=== PATIENT | female | born 1990 | race Caucasian/White ===

== ENCOUNTER 2016-10-25 07:31 | Emergency (ER) | payer OTHER ==
[2016-10-25 07:38] VITALS: BP 140/76; PULSE 74; TEMP 98.2; BMI 33.3
--- NOTE | 2016-10-25 07:55 | PDOC ---
History of Present Illness - General Chief Complaint: Vaginal Bleeding Stated Complaint: BLEEDING Time Seen by Provider: 10/25/16 07:52 History Source: Patient Exam Limitations: No Limitations - History of Present Illness Initial Comments: CHIEF COMPLAINT: 25 y/o female, c/o vaginal bleeding since yesterday. HISTORY OF PRESENT ILLNESS: The patient states her LMP was 09/08/16. She denies , stating because she is breast feeding she didn't think she could get . She admits she is passing clots and has lower abdominal and back cramping that feels like menstrual cramps. She has not taken a test. She denies f/c, n/v/d, CP, SOB, hematuria, dysuria. She gave in 2015 and has had regular menstrual periods since June 2016. Vital signs on arrival are within normal limits. REVIEW OF SYSTEMS: GENERAL/CONSTITUTIONAL: No fever/chills. No weakness. No weight change. HEAD, EYES, EARS, NOSE AND THROAT: No change in vision. No ear pain or discharge. No sore throat. CARDIOVASCULAR: No chest pain or shortness of breath. RESPIRATORY: No cough, wheezing, or hemoptysis. GASTROINTESTINAL: +abdominal cramping. No nausea, vomiting, diarrhea. GENITOURINARY: +vaginal bleeding with passage of clots. No dysuria, frequency, or change in urination. MUSCULOSKELETAL: No joint or muscle swelling or pain. No neck or back pain. SKIN: No rash or easy bruising. NEUROLOGIC: No headache, vertigo, loss of consciousness, or loss of sensation. PHYSICAL EXAM: GENERAL: The patient is awake, alert, and fully oriented, in no acute distress. She is very well appearing, ambulatory, in NAD or obvious discomfort. HEAD: Normal with no signs of trauma. ENT: Pupils equal, round and reactive to light, extraocular movements intact, sclera anicteric, conjunctiva clear. Neck supple. LUNGS: Clear to auscultation bilaterally. Normal excursion. No respiratory distress or use of accessory muscles. CV: RRR, S1/S2, no MRG. Cap refill < 2 sec. ABDOMEN: Soft, non-distended, non-tender even to deep palpation, no hepatomegaly or splenomegaly, no masses. VAGINAL: Moderate red blood in vaginal vault. Os closed. Digital exam reveals b/l adnexal tenderness as well as CMT. EXTREMITIES: Normal range of motion, no edema. NEUROLOGICAL: Normal speech, normal gait. CN II-XII grossly intact. SKIN: Warm, dry, normal turgor, no rashes or lesions noted. Past History - Past Medical History Allergies/Adverse Reactions: Allergies Allergy/AdvReac Type Severity Reaction Status Date / Time No Known Allergies Allergy Verified 10/25/16 07:37 Home Medications: Ambulatory Orders NK [No Known Home Medication] 10/25/16 Asthma: No Cancer: No Cardiac Disorders: No Diabetes: No HTN: No Seizures: No Thyroid Disease: No - Psycho/Social/Smoking Cessation Hx Anxiety: No Suicidal Ideation: No Smoking History: Never smoked Hx Alcohol Use: No Drug/Substance Use Hx: No Substance Use Type: None Hx Substance Use Treatment: No *Physical Exam - Vital Signs Last Vital Signs Temp Pulse Resp BP Pulse Ox 98.2 F 74 20 140/76 98 10/25/16 07:34 10/25/16 07:34 10/25/16 07:34 10/25/16 07:34 10/25/16 07:34 ED Treatment Course - LABORATORY CBC & Chemistry Diagram: 10/25/16 08:18 10/25/16 08:18 Medical Decision Making - Medical Decision Making A/P: 25 y/o afebrile female most likely 6 weeks and miscarrying. Plan is as follows: 1. Labs 2. UA/culture Labs unremarkable Beta <1 UA negative for UTI. Ordered ultrasound to r/o torsion Transvaginal Ultrasound IMPRESSION: Thickened endometrium with possible blood clots in the cervix. Explained all results to the patient and informed her she most likely is just experiencing her normal menstrual period. Instructed her to take Motrin if needed for pain and f/u with her ENVELOPE STAMPING MACHINE OPERATOR in 1 week if still symptomatic. The patient verbalizes understanding of all instructions, has no further questions and is awaiting discharge. *DC/Admit/Observation/Transfer Diagnosis at time of Disposition: Vaginal bleeding, Menstrual cramp - Discharge Dispostion Disposition: HOME Condition at time of disposition: Good - Referrals Referrals: Cy Brice MD [Primary Care Provider] - Call tomorrow - Patient Instructions Printed Discharge Instructions: DI for Dysmenorrhea Additional Instructions: Discharge Instructions: -All of your labs and your ultrasound were normal -You are not -You most likely have your normal menstrual period -Please follow up with your ENVELOPE STAMPING MACHINE OPERATOR within 1 week if symptoms continue. Instrucciones de arden: -Todos tus laboratorios y tu ultrasonido faith normales No estas embarazada -Usted probablemente tiene harris perodo menstrual normal -Por favor, siga con harris OB / INSULATION BLOWER dentro de 1 semana si los sntomas continan. Print Language: LIBYAN
[2016-10-25 09:00] LABS: BASOPHIL 0.3 % (0-2.0); EOSINOPHIL 1.4 % (0-4.5); MCH 29.6 pg (25.7-33.7); MCHC 33.6 g/dl (32.0-36.0); MEAN CELL VOLUME 87.9 fl (80-96); MEAN PLT VOLUME 9.2 fl (7.5-11.1); NEUTROPHILS 59.7 % (42.8-82.8); PLATELET COUNT 219 K/MM3 (134-434); WHITE BLOOD COUNT 9.4 K/mm3 (4.0-10.0)
[2016-10-25 09:14] LABS: URINE APPEARANCE CLOUDY; URINE BILIRUBIN NEGATIVE (NEGATIVE); URINE BLOOD 3+ (NEGATIVE); URINE COLOR YELLOW; URINE GLUCOSE (UA) NEGATIVE (NEGATIVE); URINE KETONE NEGATIVE (NEGATIVE); URINE LEUK ESTERASE TRACE (NEGATIVE); URINE NITRITE NEGATIVE (NEGATIVE); URINE UROBILINOGEN NEGATIVE mg/dL (0.2-1.0)
[2016-10-25 09:17] LABS: URINE PROTEIN 2+ (NEGATIVE)
[2016-10-25 09:25] LABS: ANION GAP 8 (8-16); CALCIUM 8.6 mg/dL (8.5-10.1); CO2 25 mmol/L (21-32); CREATININE 0.6 mg/dL (0.55-1.02); GLUCOSE,RANDOM 103 mg/dL (74-106); SGOT/AST 18 U/L (15-37); SGPT/ALT 46 U/L (12-78)
[2016-10-25 09:29] LABS: ALK PHOS 113 U/L (45-117); BILIRUBIN,TOTAL 0.3 mg/dL (0.2-1.0); TOT PROT 7.2 g/dl (6.4-8.2)
[2016-10-25 10:25] LABS: URINE MUCUS RARE; URINE RBC 833 /hpf (0-3)
== END 2016-10-25 11:57 | disposition home or self-care (01) ==
LOC: JER 07:31
DX: N94.6 Dysmenorrhea, unspecified (principal); N92.0 Excessive and frequent menstruation with regular cycle
CPT/HCPCS: 36415; 76830-TC; 76856-TC; 80053; 81003; 81015; 84702; 85025; 86850; 86900; 86901; 87086; 99282-25

== ENCOUNTER 2017-11-08 05:55 | Inpatient (IN) | payer OTHER ==
[2017-11-08] MEDS ORDERED: ELECTROLYTE-148 SOLN 500 ML IV SCH (06:00)
[2017-11-08 06:28] VITALS: BMI 37.0
[2017-11-08] MEDS ORDERED: ELECTROLYTE-148 SOLN 1,000 ML IV SCH (06:30)
[2017-11-08] MEDS ORDERED: CITRIC ACID/SODIUM CITRATE 30 ML UNIT-DOSE CUP PO ONE (07:00)
[2017-11-08] MEDS ORDERED: OXYTOCIN 20 UNITS in 0.9% NS 20 UNIT/1,000 ML INFUS.BAG IV ONE (07:42)
[2017-11-08] MEDS ORDERED: morphine SULFATE/Preservative Free 0.5 MG/ML (1cc Syringe) ONE (07:43)
--- NOTE | 2017-11-08 07:50 | HP ---
Past Medical History - Primary Care Physician PCP:: Sheridan Jones - Admission Chief Complaint: 27 yrs , , 39 .2 weeks , previous c/s for repeat c/s History of Present Illness: pnc at 2 ,[facility] wt gain 18 lbs Panel : 06/30/17 O pos, hbsag neg, rpr nr, hiv neg, rubella immune , sickle neg, cf screen neg .pap nilm, gc/ct neg. 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 No: GERD ...: 2 ...Para: 1 (12/17/2015 primary c/section 8'7" for transverse lie ) ...Term: 1 ...: 0 ...Spon : 0 ...Induced : 0 ...Multiple Gestation: 0 ...LMP: 02/06/17 ... Weeks Gestation by Dates: 39.2 ...EDC by Dates: 11/13/17 ...EDC by Sono: 11/13/17 (39.2 weels ) Heme/Onc: Yes: Anemia (rx po iron & pnv) Infectious Disease: No: AIDS, HIV, STD's, Tuberculosis Psych: Yes: Other (no h/o mental illness) - Past Surgical History Past Surgical History: Yes: (primary c/section 12/17/2015 [facility]) Hx Myomectomy: No Hx Transabdominal Cerclage: No - Smoking History Smoking history: Never smoked Have you smoked in the past 12 months: No - Alcohol/Substance Use Hx Alcohol Use: No History of Substance Use: reports: None Home Medications - Allergies Allergies/Adverse Reactions: Allergies Allergy/AdvReac Type Severity Reaction Status Date / Time IV contrast Allergy Intermediate Hives Uncoded 11/08/17 11:21 - Home Medications Home Medications: Ambulatory Orders Vitamins (Sjr) - 1 tab PO DAILY 11/08/17 Physical Exam - Maternity Vital Signs: Vital Signs Temperature 98.8 F 11/08/17 06:14 Pulse Rate 74 11/08/17 06:14 Respiratory Rate 18 11/08/17 06:14 Blood Pressure 120/62 11/08/17 06:14 O2 Sat by Pulse Oximetry (%) Selected Entries 11/08/17 06:14 Weight 223 lb Constitutional: Yes: Well Nourished, Obese Eyes: Yes: WNL HENT: Yes: WNL, Normocephalic Neck: Yes: WNL Cardiovascular: Yes: WNL, Regular Rate and Rhythm, Varicosities Breast(s): Yes: WNL - Abdominal Exam/OB Fundal Height: 40 Number of Fetuses: Single Presentation: Vertex Contractions: Yes Regularity: Irregular Intensity: Unaware Monitor Mode: External Heart Rate (range): 120-130 Heart Rate Location: [facility] Category: I Accelerations: Uniform Decelerations: None - Vaginal Exam/OB Vaginal Bleediing: No Speculum Exam: No Dilatation (cm): close Effacement (%): unefface Amniotic Membrane Status: Intact Presentation: Vertex/Position Station: -3 - Physical Exam Musculoskeletal: Yes: WNL Extremities: Yes: WNL. No: Calf Tenderness Edema: Yes Edema: LLE: 1+, RLE: 1+ Integumentary: Yes: Incision (pfannensteil incision) Deep Tendon Reflex Grade: Normal +2 ...Motor Strength: WNL Psychiatric: Yes: WNL, Alert, Oriented - Labs Lab Results: Laboratory Tests 12/30/15 11/06/17 11/06/17 10:10 13:20 13:20 WBC 8.8 Hgb 12.2 Hct 36.0 Plt Count 221 Neutrophils % 68.3 Lymphocytes % 26.1 PT with INR INR PTT (Actin FS) 33.1 Sodium Potassium Chloride Carbon Dioxide BUN Creatinine Random Glucose AST ALT Urine Protein Negative RPR Titer 11/06/17 11/06/17 11/06/17 13:20 13:20 13:20 WBC Hgb Hct Plt Count Neutrophils % Lymphocytes % PT with INR 12.20 INR 1.08 PTT (Actin FS) Sodium 138 Potassium 4.0 Chloride 106 Carbon Dioxide 22 BUN 10 Creatinine 0.5 L Random Glucose 69 L AST 16 ALT 18 Urine Protein RPR Titer Nonreactive Hemorrhage Risk Assessment - Risk Factors Medium Risk Factors: Yes: Prior , uterine surgery,or multiple laparotomies Risk Score: 1 Risk Level: Medium Risk Problem List - Problems (1) Elective delivery before 39 weeks of gestation Code(s): BSZ1774 - (2) Previous section Code(s): Z98.891 - HISTORY OF UTERINE SCAR FROM PREVIOUS SURGERY Assessment/Plan 27 yrs ,39.2 weeks .gbs neg prevvious c/s for repeat lftc/s
[2017-11-08] MEDS ORDERED: ceFAZolin SODIUM 1 GM VIAL ONE ×2 (07:56→15:14)
[2017-11-08] MEDS ORDERED: OXYTOCIN 10 UNITS/ML VIAL ONE (08:15)
[2017-11-08] MEDS ORDERED: KETAMINE HCL 500 MG/10 ML VIAL ONE (08:59)
[2017-11-08 09:06] LABS: ARTERIAL BLD GAS O2 SATURATION 20.2 % (90-98.9); ARTERIAL BLOOD GAS BASE EXCESS -7.7 meq/l (-2-2); ARTERIAL BLOOD GAS PCO2 74.8 mmHg (35-45); ARTERIAL BLOOD GAS PO2 17.1 mmHg (80-100); ARTERIAL BLOOD GAS pH 7.13 (7.35-7.45)
[2017-11-08 09:10] LABS: VENOUS PC02 62.2 mmHg (38-52); VENOUS PH 7.2 (7.32-7.42); VENOUS PO2 21.2 mmHg (28-48)
[2017-11-08] MEDS ORDERED: ONDANSETRON 4 MG/2 ML VIAL IVPUSH PRN (09:54)
[2017-11-08] MEDS ORDERED: METHYLERGONOVINE MALEATE 0.2 MG/1 ML AMP IM PRN (09:56)
[2017-11-08] MEDS ORDERED: IBUPROFEN 800 MG/8 ML IJ IVPB PRN (09:56)
[2017-11-08] MEDS: OXYTOCIN 20 UNITS in 0.9% NS 20 UNIT/1,000 ML INFUS.BAG IV SCH ×2 (10:47→20:07)
--- NOTE | 2017-11-08 13:50 | PN ---
Delivery - Delivery Section: Repeat, Low Flap Transverse (lysis of adhesions) Type of Anesthesia: Spinal EBL (cc): 1,000 (urine out put 200 ml ) Delivery, Single - Stages of Labor Date of Delivery: 11/08/17 Time of Delivery: 08:27 Time Placenta Delivered: :28 Placenta: Yes: Manual Removal, Uterine Exploration - Condition of Repairer Finished Metal/Ambulatory Care Present: Yes Name: Albino Hoover Infant Gender: Male Weight: 8 lb 1 oz Position: Left, OT Total Hours ROM (Hrs/Mins): 12 minutes - 1 Minute Total Score: 9 5 Minutes Total Score: 9 - [place] Feeding Plan Initial Plan: Elected not to breastfeed exclusively throughout hospitalization Remarks - Remarks Remarks: 27 yrs , previous c/section , gbs neg , pnc at 2, [facility] Indication : 39.2 weeks previous c/s, requests repeat c/section Intraop difficulty encountered delivering the baby , vacuum cup applied , 3 pop off, descent of head obtained then baby delivered from LOT position . adhesion thick band between uterus & left abdominal wall , clamped & cut , ligated omental adhesions lysis was done . 2 gm iv ancef prior to incision was given
--- NOTE | 2017-11-08 14:00 | OP ---
Operative Note - Note: Operative Date: 11/08/17 Pre-Operative Diagnosis: 39 weeks , previous c/section , obesity Operation: Repeat LFTC/Section , lysis of adhesions Findings: 8.27 AM baby Boy , LOT, 9/9, ,wt 8'1", Ht 18" difficulty delivering the baby , vacuum cup applied , 3 pop offs, descent obtained ,incision extended , the baby could be delivered Both tubes & ovaries normal Dr Hoover [employer] school music director present in the room Surgeon: Sheridan Jones Fibrous Wallboard Inspector: Sarahi Lovett Anesthesiologist/NURSE INFORMATICS EDUCATOR: Татьяна Chopra Anesthesia: Spinal Specimens Removed: cord segment for cord blood. cord blood. placenta Estimated Blood Loss (mls): 1,000 Drains, Volume Out (mls): 200 (gama ana color ) Fluid Volume Replaced (mls): 1,800 (iv ancef 2 gm ivpb given ) Operative Report Dictated: Yes
[2017-11-08] MEDS ORDERED: DEXTROSE 5%-WATER - 50 ML IVPB ONE (15:14)
[2017-11-08] MEDS: CEFAZOLIN 1 GM in DEXTROSE 5%-WATER - 50 ML IVPB SCH (15:45)
--- NOTE | 2017-11-08 15:58 | OP ---
DATE OF OPERATION: 11/08/2017 PREOPERATIVE DIAGNOSIS: At 39 weeks, previous section, obesity. OPERATION: Repeat low-flap transverse section, lysis of adhesions. SURGEON: Sheridan Jones MD GHOST WRITER: URSZULA Curry ANESTHESIOLOGIST: Татьяна Chopra MD ANESTHESIA: Spinal. FINDINGS: This is a 27-year-old 2, para 1-0-0-1 at 39.2 weeks, and she is obese. BMI is 37.1. Patient not in labor. She requests for a repeat C- section. PROCEDURE: Abdomen was shaved, prepped. Guerrier catheter was placed. She was taken to the operating room table. Spinal anesthesia was given. She was placed in supine position. Abdomen was painted and draped in usual manner. Pfannenstiel incision was made in the skin and subcutaneous tissue. Anterior rectus sheath was incised transversely. Bleeding points were clamped and cauterized. The rectus muscle was from the rectus sheath. Parietal peritoneum was opened vertically. The peritoneal access was not enough; so, transversely both sides of the peritoneum and the muscles were incised. bladder peritoneum was incised transversely, bladder pushed down. The lower uterine segment was isolated incised transversely. Lower uterine segment amniotic fluid was clear. Baby was attempted to deliver from transverse position iot , and it was difficult to deliver the baby out of the incision; so,om exposed part of scalp vacuum cup was applied, and the pressure was increased to 40 cm and traction was given. I had 3 pop offs, and by this time descent was obtained. With fundal pressure, the baby was delivered from LOT position. Before trying to delivering , the uterine incision was extended bilaterally both sides more. Cord was clamped, cut. Cord segment was sent for cord blood gases. The baby was handed over to the manager recovery, Dr. Albino Hoover. The baby's weight was 8 pounds 1 ounce. Height was 18 inches. Apgars were 9 and 9. Placenta was removed completely with the membranes, and then, the closure of the uterine incision was done. Before that, it was noted the uterus was tilted towards the right side. There was a thick band of adhesions between the uterus and the right abdominal wall, which was clamped and cut, and then the band was transected with a Biosyn 0 suture on both ends. Then, the uterus was straightened, and omental adhesions were also lysed. then, the uterine incision was closed in 2 layers, first layer a continuous locking with Biosyn 0 suture, second layer was a continuous intermittently locking with a Biosyn 0 suture. Hemostasis was verified, and the bladder peritoneum with interrupted sutures was approximated. Both tubes and ovaries were normal. Irrigation was done. Sponge, instrument, and needle count was correct, and the closure of the abdomen was done. Parietal peritoneum was closed with Vicryl 0 suture, and then, the muscles were closed with a Biosyn 0 suture. Pursestring suture was taken between the right side and the left side of the rectus muscle which were resected on both sides were thus approximated together. Hemostasis was verified. Underneath the rectus sheath, also, the hemostasis was checked, and anterior rectus sheath was closed with Vicryl 0 continuous sutures. Hemostasis was checked in subcutaneous tissues. Subcutaneous tissue was approximated with a Biosyn 0 suture, and superficially, the subcutaneous tissue was approximated with a 3-0 Vicryl, and then, the skin was closed with 4-0 Biosyn intradermal suture. Steri-Strips were applied. Pressure dressing was given. Blood clots were removed from the vagina. Patient tolerated the procedure well, and then, she was transferred to the recovery room in stable condition. Estimated blood loss is 1000 mL, and estimated urine output intraoperatively was 200 mL. It was ana color. She was given 2 g of IV Ancef prior to the incision. Patient was transferred to the recovery room in stable condition. Pb [id number] MTDD
--- NOTE | 2017-11-08 16:29 | SURG ---
Surgery Solutions Architect Note Solutions Architect: Sarahi Lovett PA-C Date of Service: 11/08/17 Diagnosis: 39 weeks, previous c section Procedure: repeat LFTC/section, lysis of adhesion I was present for the entirety of the operative procedure. For further detail, please refer to operative report.
[2017-11-09] MEDS ORDERED: DEXTROSE 5%-WATER - 50 ML IVPB ONE ×2 (00:31→07:49)
[2017-11-09] MEDS ORDERED: ceFAZolin SODIUM 1 GM VIAL ONE ×2 (00:32→07:49)
[2017-11-09] MEDS: CEFAZOLIN 1 GM in DEXTROSE 5%-WATER - 50 ML IVPB SCH ×2 (00:35→07:56)
[2017-11-09] MEDS ORDERED: oxyCODONE HCL 5 MG TABLET PO PRN ×2 (06:00)
[2017-11-09] MEDS: ACETAMINOPHEN 325 MG TABLET (FP) PO PRN ×2 (06:26→20:10)
[2017-11-09] MEDS: SIMETHICONE 80 MG TAB.CHEW (FP) PO PRN ×2 (06:27→20:09)
[2017-11-09] MEDS: IBUPROFEN 600 MG TABLET (FP) PO PRN ×2 (06:27→20:09)
--- NOTE | 2017-11-09 07:22 | PN ---
Progress Note (short form) - Note Progress Note: pod 1 s/p repeat c/s Last Vital Signs Temp Pulse Resp BP Pulse Ox 98.6 F 70 18 97/56 97 11/09/17 06:00 11/09/17 06:00 11/09/17 06:00 11/09/17 06:00 11/08/17 21:00 abdomen soft, no distension, no cva incision dry, clean no calf tenderness lochia mild plan ambulate, cbc, advance diet
[2017-11-09 08:01] LABS: BASO % 0.3 % (0-2.0); EOS % 0.4 % (0-4.5); HEMATOCRIT 24.3 % (32.4-45.2); HEMOGLOBIN 8.3 GM/dL (10.7-15.3); LYMPH % 21.4 % (8-40); MCH 28.5 pg (25.7-33.7); MCHC 33.9 g/dl (32.0-36.0); MEAN CELL VOLUME 84.2 fl (80-96); MONO % 5.4 % (3.8-10.2); NEUT % 72.5 % (42.8-82.8); PLATELET COUNT 164 K/MM3 (134-434); RBC 2.89 M/mm3 (3.60-5.2); RDW 14.5 % (11.6-15.6); WHITE BLOOD COUNT 8.3 K/mm3 (4.0-10.0)
[2017-11-09] MEDS: ENOXAPARIN NA (PORCINE) 40 MG/0.4 ML DISP.SYRIN SQ SCH (09:42)
[2017-11-09] MEDS: PRENATAL VITAMINS W/ FOLIC ACID TABLET (FP) PO SCH (09:42)
[2017-11-09] MEDS ORDERED: BISACODYL 10 MG SUPP.RECT RC PRN (09:56)
--- NOTE | 2017-11-09 11:01 | PN ---
Progress Note, Physician Chief Complaint: day 1 s/p csection - Current Medication List Current Medications: Active Medications Acetaminophen (Tylenol -) 650 mg PO Q4H PRN PRN Reason: FEVER Last Admin: 11/09/17 06:26 Dose: 650 mg Bisacodyl (Dulcolax Suppository -) 10 mg RC PRN PRN PRN Reason: CONSTIPATION Diphenhydramine HCl (Benadryl Injection -) 25 mg IVPUSH Q4H PRN PRN Reason: Pruritis Enoxaparin Sodium (Lovenox -) 40 mg SQ DAILY [facility] Last Admin: 11/09/17 09:42 Dose: 40 mg Ferrous Sulfate (Feosol -) 325 mg PO BIDWM [facility] Cefazolin Sodium 1 gm/ (Dextrose) 50 mls @ 100 mls/hr IVPB Q8H [facility] Stop: 11/09/17 15:59 Last Admin: 11/09/17 07:56 Dose: 100 mls/hr Oxytocin/Sodium Chloride (Normal Saline+20 Units Oxytocin -) 20 unit in 1,000 mls @ 125 mls/hr IV ASDIR [facility] Last Admin: 11/08/17 20:07 Dose: 125 mls/hr Ibuprofen (Motrin -) 600 mg PO Q4H PRN PRN Reason: PAIN LEVEL 1 - 3 Last Admin: 11/09/17 06:27 Dose: 600 mg Ibuprofen (Caldolor Injection -) 800 mg IVPB Q8H PRN PRN Reason: PAIN LEVEL 1-5 Last Admin: 11/08/17 10:47 Dose: 800 mg Methylergonovine Maleate (Methergine Injection -) 0.2 mg IM Q4H PRN PRN Reason: Excessive Bleeding (L&D) Ondansetron HCl (Zofran Injection) 4 mg IVPUSH Q4H PRN PRN Reason: NAUSEA Oxycodone HCl (Roxicodone -) 5 mg PO Q4H PRN PRN Reason: PAIN LEVEL 4 - 6 Oxycodone HCl (Roxicodone -) 10 mg PO Q4H PRN PRN Reason: PAIN LEVEL 7 - 10 Multivit/Folic Acid/Iron ( Vitamins (Sjr) -) 1 tab PO DAILY [facility] Last Admin: 11/09/17 09:42 Dose: 1 tab Senna/Docusate Sodium (Pericolace -) 2 tablet PO HS PRN PRN Reason: CONSTIPATION Simethicone (Mylicon -) 80 mg PO Q4H PRN PRN Reason: GAS Last Admin: 11/09/17 06:27 Dose: 80 mg - Objective Vital Signs: Vital Signs Temperature 97.8 F 11/09/17 09:16 Pulse Rate 76 11/09/17 09:16 Respiratory Rate 18 11/09/17 09:16 Blood Pressure 109/59 11/09/17 09:16 O2 Sat by Pulse Oximetry (%) 97 11/08/17 21:00 Labs: CBC, BMP 11/09/17 06:10 Assessment/Plan doing well after spinal with duramorph, for a csection. Minimal pain, no LEACH, no backpain. No anesthetic issues/complications
[2017-11-09] MEDS: FERROUS SO4 325 MG TABLET (FP) PO SCH (17:12)
[2017-11-09] MEDS: SENNOSIDES/DOCUSATE COMBO (SENNA PLUS) TABLET (UD) PO PRN (20:09)
[2017-11-09] MEDS: OXYTOCIN 20 UNITS in 0.9% NS 20 UNIT/1,000 ML INFUS.BAG IV SCH (22:49)
[2017-11-10] MEDS: IBUPROFEN 600 MG TABLET (FP) PO PRN ×3 (07:44→20:40)
[2017-11-10] MEDS: SIMETHICONE 80 MG TAB.CHEW (FP) PO PRN ×2 (07:44→16:54)
[2017-11-10] MEDS: FERROUS SO4 325 MG TABLET (FP) PO SCH ×2 (07:44→16:54)
[2017-11-10] MEDS: ACETAMINOPHEN 325 MG TABLET (FP) PO PRN ×3 (07:44→20:40)
[2017-11-10] MEDS: ENOXAPARIN NA (PORCINE) 40 MG/0.4 ML DISP.SYRIN SQ SCH (09:08)
[2017-11-10] MEDS: PRENATAL VITAMINS W/ FOLIC ACID TABLET (FP) PO SCH (09:08)
[2017-11-10] MEDS: SENNOSIDES/DOCUSATE COMBO (SENNA PLUS) TABLET (UD) PO PRN (21:30)
--- NOTE | 2017-11-10 22:47 | PN ---
Progress Note (short form) - Note Progress Note: pod 2 doing well, ambulating, passing gas, no dizziness Last Vital Signs Temp Pulse Resp BP Pulse Ox 98.8 F 85 18 102/46 97 11/10/17 21:54 11/10/17 21:54 11/10/17 21:54 11/10/17 21:54 11/08/17 21:00 abdomen soft, no distension, no cva incision dry, clean no calf tenderness plan , ambulate cbc in am pain management. iron, vit CBC, BMP 11/09/17 06:10
[2017-11-11 06:50] LABS: BASO % 0.3 % (0-2.0); EOS % 1.2 % (0-4.5); HEMATOCRIT 22.6 % (32.4-45.2); HEMOGLOBIN 7.6 GM/dL (10.7-15.3); LYMPH % 18.7 % (8-40); MCH 28.8 pg (25.7-33.7); MCHC 33.6 g/dl (32.0-36.0); MEAN CELL VOLUME 85.9 fl (80-96); MEAN PLT VOLUME 8.9 fl (7.5-11.1); MONO % 4.5 % (3.8-10.2); NEUT % 75.3 % (42.8-82.8); PLATELET COUNT 185 K/MM3 (134-434); RBC 2.63 M/mm3 (3.60-5.2); RDW 14.8 % (11.6-15.6); WHITE BLOOD COUNT 11.1 K/mm3 (4.0-10.0)
--- NOTE | 2017-11-11 08:06 | PN ---
Progress Note (short form) - Note Progress Note: pod 3 ,anemia, symptomatic , no dizziness , ambulating, no excess vaginal bleeding CBC, BMP 11/11/17 06:30 Last Vital Signs Temp Pulse Resp BP Pulse Ox 98.8 F 85 18 102/46 97 11/10/17 21:54 11/10/17 21:54 11/10/17 21:54 11/10/17 21:54 11/08/17 21:00 abdomen soft, no distension, no cva incision dry, clean no calf tenderness impression , anemia , asymptomatic , blood transfusion discussed plan repeat cbc in am , revaluate, if cbc decreases need transfusion
[2017-11-11] MEDS: PRENATAL VITAMINS W/ FOLIC ACID TABLET (FP) PO SCH (09:32)
[2017-11-11] MEDS: FERROUS SO4 325 MG TABLET (FP) PO SCH ×2 (09:32→17:19)
[2017-11-11] MEDS: SIMETHICONE 80 MG TAB.CHEW (FP) PO PRN (09:33)
[2017-11-11] MEDS: ENOXAPARIN NA (PORCINE) 40 MG/0.4 ML DISP.SYRIN SQ SCH (09:33)
[2017-11-11] MEDS: ACETAMINOPHEN 325 MG TABLET (FP) PO PRN ×2 (09:33→21:00)
[2017-11-11] MEDS: IBUPROFEN 600 MG TABLET (FP) PO PRN ×2 (09:33→21:00)
[2017-11-11] MEDS: SENNOSIDES/DOCUSATE COMBO (SENNA PLUS) TABLET (UD) PO PRN (21:00)
[2017-11-12] MEDS: FERROUS SO4 325 MG TABLET (FP) PO SCH (08:03)
[2017-11-12 08:37] VITALS: BP 119/64; PULSE 69; TEMP 98.2
--- NOTE | 2017-11-12 08:41 | PN ---
Progress Note (short form) - Note Progress Note: pod 4 no dizziness , no headache, no excess vaginal bleeding Last Vital Signs Temp Pulse Resp BP Pulse Ox 98.2 F 69 20 119/64 97 11/12/17 08:35 11/12/17 08:35 11/12/17 08:35 11/12/17 08:35 11/08/17 21:00 abdomen soft, no distension, no cav incision dry, clean no excess vaginal bleeding no calf tenderness plan cbc today , if stable d/c home on po iron vit, follow up [facility] 1 week instruction given if dizziness , hedaache, increase vaginal bleeding call
[2017-11-12 08:43] LABS: BASO % 0.3 % (0-2.0); EOS % 2.6 % (0-4.5); HEMOGLOBIN 8.4 GM/dL (10.7-15.3); LYMPH % 32.8 % (8-40); MCH 28.9 pg (25.7-33.7); MCHC 33.7 g/dl (32.0-36.0); MEAN CELL VOLUME 85.6 fl (80-96); MEAN PLT VOLUME 8.5 fl (7.5-11.1); MONO % 5.5 % (3.8-10.2); NEUT % 58.8 % (42.8-82.8); PLATELET COUNT 249 K/MM3 (134-434); RBC 2.92 M/mm3 (3.60-5.2); RDW 15.2 % (11.6-15.6)
[2017-11-12] MEDS: PRENATAL VITAMINS W/ FOLIC ACID TABLET (FP) PO SCH (09:58)
[2017-11-12] MEDS: ENOXAPARIN NA (PORCINE) 40 MG/0.4 ML DISP.SYRIN SQ SCH (09:58)
--- NOTE | 2017-11-12 17:45 | DS ---
Physical Exam-BROWN SOURER Vital Signs: Vital Signs Temperature 98.2 F 11/12/17 08:35 Pulse Rate 69 11/12/17 08:35 Respiratory Rate 20 11/12/17 08:35 Blood Pressure 119/64 11/12/17 08:35 O2 Sat by Pulse Oximetry (%) 97 11/08/17 21:00 Constitutional: Yes: Well Nourished, Obese, Other (pain scale 4-5/10) Eyes: Yes: WNL HENT: Yes: WNL, Normocephalic Neck: Yes: WNL Cardiovascular: Yes: WNL, Regular Rate and Rhythm Respiratory: Yes: WNL, CTA Bilaterally Gastrointestinal: Yes: WNL, Normal Bowel Sounds, Soft, Abdomen, Obese, Other ( bm done.). No: Distention Renal/: Yes: WNL, Other (voiding without difficlty). No: CVA Tenderness - Left, CVA Tenderness - Right ....Post : Yes: Uterus firm, Uterus non-tender, Slight lochia rubra Breast(s): Yes: WNL Musculoskeletal: Yes: WNL Extremities: Yes: WNL. No: Calf Tenderness Edema: LLE: 1+, RLE: 1+ Integumentary: Yes: WNL Wound/Incision: Yes: Clean/Dry, Well Approximated, Sutures Intact, Steri Strips. No: Draining, Reddened, Bleeding, Excoriated Neurological: Yes: WNL ...Motor Strength: WNL Psychiatric: Yes: WNL, Alert, Oriented Labs: CBC, BMP 11/12/17 08:30 Delivery - Delivery Section: Repeat, Low Flap Transverse (lysis of adhesions) Type of Anesthesia: Spinal EBL (cc): 1,000 (urine out put 200 ml ) Delivery, Single - Stages of Labor Date of Delivery: 11/08/17 Time of Delivery: 08:27 Time Placenta Delivered: 08:28 Placenta: Yes: Manual Removal, Uterine Exploration - Condition of Infant Political Theory Professor/Physically Impaired Teacher Present: Yes Name: Albino Hoover Infant Gender: Male Weight: 8 lb 1 oz Position: Left, OT Total Hours ROM (Hrs/Mins): 12 minutes - 1 Minute Total Score: 9 5 Minutes Total Score: 9 - Feeding Plan Initial Plan: Elected not to breastfeed exclusively throughout hospitalization Remarks - Remarks Remarks: 27 yrs , previous c/section , gbs neg , pnc at , [facility] Indication : 39.2 weeks previous c/s, requests repeat c/section Intraop difficulty encountered delivering the baby , vacuum cup applied , 3 pop off, descent of head obtained then baby delivered from LOT position . adhesion thick band between uterus & left abdominal wall , clamped & cut , ligated omental adhesions lysis was done . 2 gm iv ancef prior to incision was given post op afebrile stable Anemia noted, patient counselled Discharged by Dr Chiang Discharge Summary Reason For Visit: SECTION Condition: Stable - Instructions Diet, Activity, Other Instructions: Post Instructions DIET: Continue good diet high in protein, calcium, and iron rich foods. Drink at least eight (8) glasses of water daily in addition to other fluids. ___ Regular diet MEDICATIONS: Continue vitamins and iron as previously directed. Motrin and Tylenol may be taken for minor discomfort. ACTIVITY: Mild to moderate exercise may be started in two (2) weeks. Take frequent rest periods. Resume normal activity after six (6) week check up. WOUND CARE OF OPERATIVE SITE: Continue use of perineal bottle until vaginal discharge stops. Keep area clean. Shower daily. Keep abdominal wound dry. Report any drainage or redness to physician. Tub baths, tampons and douches are not permitted for 6 weeks. Breast feeding & or Bottle feeding BREAST CARE: (For those that are not breast feeding): If engorgement occurs: Wear tight fitting bra. Take Tylenol or Motrin for pain. Apply cold packs (ice in bags to each breast ) FAMILY PLANNING: There are many control alternatives to pursue and they should be discussed at your first office visit. You may resume sexual activity after your six (6) week check up. (Remember, is not a contraceptive) NEXT PHYSICIAN APPOINTMENT: Be certain to call for a one (1) week appointment, unless otherwise directed. RTC for wound check Call Clinic or got to Emergency Dept if you have any of the following: Heavy vaginal bleeding Painful urination Leg pain Unusual odor noted to vaginal bleeding High fever Red streaking noted on breast call [facility] for appointment in 1 week. [phone] Referrals: Sheridan Jones MD [Staff Physician] - Disposition: HOME - Home Medications Comprehensive Discharge Medication List: Ambulatory Orders Vitamins (Sjr) - 1 tab PO DAILY 11/08/17 Acetaminophen [Tylenol .Regular Strength -] 500 mg PO Q4H PRN #30 tablet Ferrous Sulfate [Feosol] 325 mg PO BIDWM #60 tab 11/10/17 Ibuprofen [Motrin -] 600 mg PO Q4H PRN #30 tablet 11/10/17 Vitamins (Sjr) - 1 tab PO DAILY #30 tablet 11/10/17
--- NOTE | 2017-11-19 17:08 | PATH ---
Surgical Pathology Report Patient Name: MICHAEL MARTINEZ Med. Rec. #: [id number] /Age/Gender: 1990 (Age: 27) / F Account: [id number] Location: [facility] OBS/[place] Taken: 11/08/2017 Received: 11/09/2017 Reported: 11/19/2017 Physicians: Sheridan Jones M.D. Specimen(s) Received PLACENTA Clinical History , 38.6 weeks repeat Obesity Final Diagnosis PLACENTA, SECTION: 565 G THIRD TRIMESTER PLACENTA WITH TRIVASCULAR UMBILICAL CORD AND UNREMARKABLE PLACENTAL MEMBRANES. Electronically Signed Jeannine Wynn M.D. Gross Description The specimen is received fresh labeled placenta and is a 565 gram, 14.0 x 14.0 x 4.0 cm. placenta with attached membranes and umbilical cord. The attached membranes are donald, thick, cloudy and insert marginally. The umbilical cord measures 14 cm. in length and averages 1.8 cm. in diameter. The cord inserts eccentrically, 3 cm. to the nearest margin. No true knots or strictures are identified. Cut surface of the umbilical cord reveals 3 vessels. The surface is benoit-blue with minimal fibrin deposition and appropriate caliber vessels. The maternal surface is red-brown with focal defects. Sectioning reveals red-brown, spongy parenchyma. No lesions are identified. Sole Trimmer sections are submitted in three cassettes as follows: 1- membrane rolls and umbilical cord; 2-3- full thickness sections of placenta. 11/16/2017 [facility]11/16/2017
== END 2017-11-12 13:45 | disposition home or self-care (01) | DRG 540 ==
LOC: JLDR 05:55 → J3W 11:10
PROVIDERS: ADMIT Obstetrics & Gynecology; ATTEND Obstetrics & Gynecology
PROC: 10D00Z1 Extraction of Products of Conception, Low, Open Approach (ICD-10-PCS; principal; 2017-11-08)
PROC: 0DNU0ZZ Release Omentum, Open Approach (ICD-10-PCS; 2017-11-08)
DX: O34.211 Maternal care for low transverse scar from previous cesarean delivery (principal); N85.8 Other specified noninflammatory disorders of uterus; Z3A.39 39 weeks gestation of pregnancy; O99.013 Anemia complicating pregnancy, third trimester; O99.213 Obesity complicating pregnancy, third trimester; E66.9 Obesity, unspecified; Z68.37 Body mass index [BMI] 37.0-37.9, adult; Z37.0 Single live birth
CPT/HCPCS: 36415; 36600; 82803; 85025; 88307-TC

== ENCOUNTER 2021-09-08 13:33 | Emergency (ER) | payer SELFPAY ==
[2021-09-08 13:53] VITALS: BMI 37.5
[2021-09-08] MEDS ORDERED: ACETAMINOPHEN 1000 MG/100 ML BAG IVPB ONE (15:39)
[2021-09-08] MEDS ORDERED: SODIUM CHLORIDE 0.9% 500 ML INFUS.BAG IV ONE ×2 (15:40→16:49)
[2021-09-08 16:26] LABS: BASO % 0.2 % (0-2.0); EOS % 0.1 % (0-4.5); HEMATOCRIT 38.1 % (32.4-45.2); HEMOGLOBIN 13.5 GM/dL (10.7-15.3); LYMPH % 16.5 % (8-40); MCHC 35.4 g/dl (32.0-36.0); MEAN CELL VOLUME 84.8 fl (80-96); MEAN PLT VOLUME 9.2 fl (7.5-11.1); MONO % 6.5 % (3.8-10.2); NEUT % 76.7 % (42.8-82.8); PLATELET COUNT 179 10^3/uL (134-434); RDW 12.8 % (11.6-15.6); WHITE BLOOD COUNT 9.8 K/mm3 (4.0-10.0)
[2021-09-08 16:30] LABS: EPI CELLS 7 /uL (0-25.1); HYALINE CASTS 1 /uL (0-3.1); PH,URINE 5.5 (5.0-8.0); URINE APPEARANCE CLEAR; URINE BACTERIA >9,000 /uL (0-1359); URINE BILIRUBIN NEGATIVE (NEGATIVE); URINE COLOR YELLOW; URINE GLUCOSE (UA) 3+ (NEGATIVE); URINE KETONE 1+ (NEGATIVE); URINE LEUK ESTERASE NEGATIVE (NEGATIVE); URINE NITRITE POSITIVE (NEGATIVE); URINE PROTEIN TRACE (NEGATIVE); URINE RBC 14 /uL (0-23.9); URINE UROBILINOGEN 0.2 mg/dL (0.2-1.0); URINE WBC 52 /uL (0-25.8)
[2021-09-08] MEDS ORDERED: ACETAMINOPHEN 500 MG TABLET (FP) PO ONE (16:35)
[2021-09-08] MEDS ORDERED: ACETAMINOPHEN 500 MG TABLET (FP) ONE (16:37)
[2021-09-08] MEDS ORDERED: CEFTRIAXONE 1 GM/50 ML BAG ONE (16:41)
[2021-09-08 16:48] LABS: ALBUMIN 4.2 g/dl (3.4-5.0); BLOOD UREA NITROGEN 7.5 mg/dL (7-18); CALCIUM 8.8 mg/dL (8.5-10.1)
[2021-09-08 16:51] LABS: CREATININE 0.7 mg/dL (0.55-1.3)
[2021-09-08 16:52] LABS: BILIRUBIN,TOTAL 0.5 mg/dL (0.2-1)
[2021-09-08 16:53] LABS: TOT PROT 7.6 g/dl (6.4-8.2)
[2021-09-08] MEDS ORDERED: IBUPROFEN 400 MG TABLET (FP) PO ONE ×2 (18:00→18:01)
[2021-09-08 19:36] VITALS: BP 112/65
[2021-09-08 19:58] VITALS: PULSE 103; TEMP 101
== END 2021-09-08 20:03 ==
LOC: JER 13:33
PROC: 3E03329 Introduction of Other Anti-infective into Peripheral Vein, Percutaneous Approach (ICD-10-PCS; principal; 2021-09-08)
PROC: 3E033NZ Introduction of Analgesics, Hypnotics, Sedatives into Peripheral Vein, Percutaneous Approach (ICD-10-PCS; 2021-09-08)
DX: U07.1 COVID-19 (principal); N39.0 Urinary tract infection, site not specified
CPT/HCPCS: 0241U-QW; 36415; 80053; 81003; 82010; 82962; 84703; 85025; 87086; 87186; 93005; 93010; 99284-25